=== PATIENT | female | born 1990 | race American Indian/Alaskan Native ===

== ENCOUNTER 2018-01-22 16:14 | Emergency (ER) | payer OTHER ==
[2018-01-22 16:26] VITALS: BP 122/80
--- NOTE | 2018-01-22 18:07 | Emergency Department Report ---
ED Back Pain/Injury HPI - General Chief Complaint: Extremity Injury, Lower Stated Complaint: LOWER BACK/LEG PAIN Time Seen by Provider: 01/22/18 16:29 Source: patient Limitations: No Limitations - History of Present Illness Initial Comments: Patient is a 27-year-old [place] female who is presenting with back pain with radiation into the right leg. 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 Patient is no longer on blood thinners currently. Patient states pain started the low back and right buttock and radiates down the leg. She does feel some tenderness in the posterior thigh. The injury or trauma. Patient denies any fever or urinary symptoms at this time. MD Complaint: back pain -: year(s) (1) Similar Symptoms Previously: No Severity scale (0 -10): 7 - Related Data Previous Rx's Medication Instructions Recorded Last Taken Type HYDROcodone/APAP 5-325 [Fisher 1 each PO Q6HR PRN #12 tablet 01/22/18 Unknown Rx 5/325] predniSONE [Deltasone] 20 mg PO QDAY #5 tab 01/22/18 Unknown Rx Allergies Allergy/AdvReac Type Severity Reaction Status Date / Time acetaminophen [From Percocet] Allergy Hives Verified 01/22/18 16:22 enoxaparin [From Lovenox] Allergy Hives Verified 01/22/18 16:22 oxycodone [From Percocet] Allergy Hives Verified 01/22/18 16:22 ED Review of Systems ROS: Stated complaint: LOWER BACK/LEG PAIN Other details as noted in HPI Comment: All other systems reviewed and negative ED Past Medical Hx - Past Medical History DVT ED Back Pain Physical Exam - Exam General: Vital signs noted. No distress. Alert and acting appropriately. Heart lung exams are within normal limits Back/Abdomen: No Abdominal Tenderness, No Perithoracic Tenderness, No Perilumbar Tenderness, No Sacroiliac Tenderness, No Flank Tenderness, No Straight Leg Raise Pain Neuro: Yes Normal Sensation, Yes Normal DTR's, Yes Normal Gait, No Motor Weakness ED Course Vital Signs 01/22/18 16:22 Temperature 98.5 F Pulse Rate 72 Respiratory 18 Rate Blood Pressure 122/80 O2 Sat by Pulse 100 Oximetry ED Medical Decision Making - Radiology Data Radiology results: report reviewed interpreted by me: No DVT seen Critical care attestation.: If time is entered above; I have spent that time in minutes in the direct care of this critically ill patient, excluding procedure time. ED Disposition Clinical Impression: Sciatica Qualifiers: Laterality: right Qualified Code(s): M54.31 - Sciatica, right side Disposition: TO HOME OR SELFCARE Is pt being admited?: No Does the pt Need Aspirin: No Condition: Stable Instructions: Sciatica (ED) Prescriptions: HYDROcodone/APAP 5-325 [Fisher 5/325] 1 each PO Q6HR PRN #12 tablet PRN Reason: Pain predniSONE [Deltasone] 20 mg PO QDAY #5 tab Referrals: PRIMARY CARE, [Primary Care Provider] - 3-5 Days
--- NOTE | 2018-01-26 12:21 | Vascular Lab Report ---
Right Lower Extremity Venous Duplex Study: Reason for Exam: Deep venous thrombosis. Comments on the Right: All veins visualized are freely compressible without evidence of internal echogenicity. Flow is spontaneous and phasic throughout. No evidence of acute or chronic thrombus is seen in any of the vessels visualized. Comments on the Left: A limited duplex study was done of the proximal veins of the left lower extremity. All veins visualized are freely compressible without evidence of internal echogenicity. Flow is spontaneous and phasic throughout. No evidence of acute or chronic thrombus is seen in any of the vessels visualized. Impression: No evidence of acute or chronic deep venous thrombosis in the right lower extremity.
== END 2018-01-22 18:23 | disposition home or self-care (01) ==
LOC: ED 16:14
DX: M54.31 Sciatica, right side (principal); Z86.718 Personal history of other venous thrombosis and embolism; Z88.6 Allergy status to analgesic agent; Z88.8 Allergy status to other drugs, medicaments and biological substances
CPT/HCPCS: 99282